=== PATIENT | female | born 1985 | race Caucasian/White ===

== ENCOUNTER → 2020-01-09 | Outpatient (CLI) | payer OTHER | LOC: SJCVCIMAG 09:41 | PROVIDERS: ATTEND Internal Medicine Cardiovascular Disease | DX: I08.1 Rheumatic disorders of both mitral and tricuspid valves (principal); R94.31 Abnormal electrocardiogram [ECG] [EKG] ==

== ENCOUNTER → 2020-04-16 | Outpatient (CLI) | payer OTHER | LOC: SJCVCIMAG 14:47 | PROVIDERS: ATTEND Internal Medicine Cardiovascular Disease | DX: I07.1 Rheumatic tricuspid insufficiency (principal); I10 Essential (primary) hypertension; Z79.899 Other long term (current) drug therapy; Z86.16 Personal history of COVID-19 ==

== ENCOUNTER 2020-05-08 11:33 | Inpatient (IN) | payer OTHER ==
[~2020-05-08] VITALS: Ht 180.3 cm; Wt 126.9 kg
[2020-05-08 11:34] VITALS: BP 136/77
[2020-05-08 12:45] LABS: HEMOGLOBIN 12.7 gm/dL (12.0-15.0); MONOCYTES 7.9 % (1.0-8.0)
[2020-05-08 12:52] LABS: ABSOLUTE NEUTROPHILS 8.9 thou/uL (1.4-8.2); BASOPHILS 0.5 % (0.0-2.0); HEMATOCRIT 37.6 % (37.0-47.0); LYMPHOCYTES 3.4 % (24.0-44.0); MCH 28.5 pg (26.0-34.0); MCHC 33.8 g/dL (28.0-37.0); MCV 84.3 fL (80.0-100.0); POLYS 88.2 % (36.0-66.0); RBC 4.46 mil/uL (4.20-5.00); RDW 14.1 % (10.5-14.5); WBC 10.1 thou/uL (4.0-11.0)
[2020-05-08 12:54] LABS: CREATININE 2.2 mg/dL (0.6-1.0); POTASSIUM 3.8 mmol/L (3.5-5.1)
[2020-05-08 13:00] LABS: ALBUMIN 3.3 g/dL (3.4-5.0); TOTAL BILIRUBIN 1.8 mg/dL (0.2-1.0); TOTAL PROTEIN 7.9 g/dL (6.4-8.2)
[2020-05-08 13:29] LABS: URINE BILIRUBIN 1+ (Negative); URINE BLOOD 3+ (Negative); URINE CLARITY CLEAR; URINE COLOR YELLOW; URINE GLUCOSE-RANDOM* NEGATIVE (Negative); URINE KETONES TRACE (Negative); URINE NITRITE-REFLEX NEGATIVE (Negative); URINE PROTEIN (DIPSTICK) 2+ (Negative)
--- NOTE | 2020-05-08 13:29 | EKG ---
[address] [place] [address] ELECTROCARDIOGRAM REPORT Name: KERRI SANCHEZ CHAO Room #: [facility] [id number] Admission: 05/08/20 Attend Phys: Discharge: Date of : 81 Report #: [id number] [facility] Test Date: 2020-05-08 Test Time: 12:59:21 Pat Name: KERRI SANCHEZ Department: Room: Gender: F Manager Produce: KATIE : 1985 Requested By: Zay Perez Order Number: [id number] MD: Baltazar Rose Measurements Intervals [place] Rate: 119 P: 69 VA: 127 QRS: 55 QRSD: 80 T: -29 QT: 339 QTc: 478 Interpretive Statements Sinus tachycardia Probable left atrial enlargement Borderline T wave abnormalities Borderline prolonged QT interval No previous ECG available for comparison Electronically Signed On 05-08-2020 13:29:21 CDT by Baltazar Rose [email or web address] <ELECTRONICALLY SIGNED> By: Baltazar Rose MD, [facility] 05/08/20 1329 [id number] Baltazar Rose MD, FACC /EPI
[2020-05-08 13:31] LABS: URINE LEUKOCYTES-REFLEX 3+ (Negative)
[2020-05-08 13:42] LABS: WBC CLUMPS Moderate (None Seen)
[2020-05-08 13:43] LABS: BACTERIA-REFLEX >30 Many /HPF (None Seen); SQUAMOUS 4-10 Moderate /LPF (0-3); URINE WBC-REFLEX >25 Many /HPF (0-5)
[2020-05-08 13:44] LABS: COARSE GRANULAR CASTS 0-3 Few /LPF (None Seen)
[2020-05-08 13:45] LABS: CRYSTALS None Seen /LPF (None Seen); URINE RBC 0-2 Rare /HPF (0-2)
[2020-05-08 14:11] LABS: PLATELET COUNT 160 thou/uL (150-400)
[2020-05-08 14:12] LABS: LARGE PLATELETS RARE
[2020-05-08 17:25] VITALS: BP 123/64
[2020-05-08 18:12] VITALS: BP 123/64
[2020-05-08] MEDS ORDERED: METOPROLOL SUC100 MG PO (20:11)
[2020-05-08] MEDS ORDERED: HUMALOG100 UNIT/1 SUBQ (20:12)
[2020-05-08] MEDS ORDERED: ESCITALOPRAM OX20 MG PO (20:12)
[2020-05-08] MEDS ORDERED: METFORMIN HCL500 M1 PO (20:13)
[2020-05-08] MEDS ORDERED: HYDROCHLOROTH12.5 M2 PO (20:14)
[2020-05-08] MEDS ORDERED: LANTUS SOL100 UNIT/1 SUBQ (20:15)
[2020-05-08] MEDS ORDERED: LOSARTAN POTASS50 MG PO (20:16)
[2020-05-08] MEDS ORDERED: PULMICORT FLE180 MCG INH (20:17)
[2020-05-08] MEDS ORDERED: ROSUVASTATIN CAL5 MG PO (20:19)
--- NOTE | 2020-05-08 20:38 | NUR ---
RECEIVED PT FROM ED. PT IS AXOX4, WITH MOTHER WHO IS CAREGIVER. PT IS LEGALLY BLIND. PT HAS LOW GRADE FEVER, SKIN CLAMMY, WITH SOME FLUSHING. PT IS ST ON MOLDING MACHINE OPERATOR HELPER. ADMISSION COMPLETED. MOTHER AT THE BEDSIDE. POC IS TO CONTINUE MED RECONCILLIATION, CONTINUE CARE PER ORDERS. FALL PRECAUTIONS IN PLACE. NO CONCERNS AT THIS TIME.
[2020-05-08 22:31] VITALS: BP 130/78
[2020-05-09 00:17] VITALS: BP 110/66
--- NOTE | 2020-05-09 04:38 | NUR ---
ASSESSMENT DOCUMENTED.PT BEEN RESTING IN BED IN NO ACUTE DISTRESS.A/OX4.LEGALLY BLIND .VSS.PT HAD LOW GRADE FEVER WITH CHILLS AT THE BEGINNING OF THE SHIFT,TYLENOL WAS GIVEN FOR PAIN/FEVER,PT HAS BEEN AFEBRILE AFTER THAT BUT OCCASIONALLY GETS SWEATY W/CHILLS.TOLERATING ORAL FLUIDS.VOIDING IN LARGE AMOUNT,MUTIPLE TIMES THIS SHIFT.MEDS RECONCILLED AND VERIFIED BY DR JAVED.PT DENIES ANY NEEDS AT THIS TIME.
[2020-05-09 04:42] VITALS: BP 151/92
[2020-05-09 05:33] LABS: HEMATOCRIT 35.4 % (37.0-47.0); HEMOGLOBIN 11.6 gm/dL (12.0-15.0); MCH 28.2 pg (26.0-34.0); MCHC 32.8 g/dL (28.0-37.0); RBC 4.11 mil/uL (4.20-5.00); RDW 14.2 % (10.5-14.5)
[2020-05-09 05:52] LABS: CALCIUM 8.4 mg/dL (8.5-10.1); POTASSIUM 4.3 mmol/L (3.5-5.1)
[2020-05-09 08:00] VITALS: BP 137/87
[2020-05-09 12:00] VITALS: BP 125/76
[2020-05-09 16:00] VITALS: BP 129/80
[2020-05-09 19:30] VITALS: BP 143/93
--- NOTE | 2020-05-09 19:56 | NUR ---
RECEIVED PT'S CARE AROUND 0720; PT. ON BED RESTING WITH EYES CLOSED; SLEEP INTERRUPTED AT SHIFT CHANGED; PT. ALERT; SR ON THE MONITOR; DURING AM ASSESSMENT PT. AOX4; NO C/O PAIN; EDUCATED ABOUT PAIN MANAGEMENT; ST. UNDERSTANDING; AM MEDICATIONS GIVEN; UP TO CHAIR THROUGH THE MORNING; BG ON THE 300s; PHYSICIAN NOTIFIED ORDERS RECEIVED; FROM LOW DOSE TO MODERATE AND HIGH DOSE; DURING THE AFTERNOON PT. C/O PAIN; PRN ACETAMINOPHEN GIVEN; REASSESSMENT PT. ST. DECREASE PAIN, BUT REMAINED ON PAIN; PHYSICIAN NOTIFIED; ORDERS RECEIVED; PRN PAIN MEDICATION GIVNE; REASSESSMENT PT. RESTING WITH EYES CLOSED; ASSESSMENT CHARGED; FOLLOWING POC; PASSED ON REPORT;
[2020-05-10 04:45] VITALS: BP 143/80; BP 149/82
[2020-05-10 04:49] LABS: CALCIUM 8.4 mg/dL (8.5-10.1); CREATININE 1.4 mg/dL (0.6-1.0)
[2020-05-10 05:03] LABS: POTASSIUM 3.1 mmol/L (3.5-5.1)
[2020-05-10 05:06] LABS: HEMATOCRIT 31.4 % (37.0-47.0); HEMOGLOBIN 10.5 gm/dL (12.0-15.0); MCH 28.2 pg (26.0-34.0); MCHC 33.5 g/dL (28.0-37.0); MCV 84.3 fL (80.0-100.0); RBC 3.73 mil/uL (4.20-5.00); RDW 14.3 % (10.5-14.5); WBC 5.4 thou/uL (4.0-11.0)
[2020-05-10 07:25] VITALS: BP 143/80
[2020-05-10] MEDS ORDERED: HYDROCODON-ACE1 EAC7 PO (08:53)
[2020-05-10] MEDS ORDERED: CEFDINIR300 MG PO (08:54)
[2020-05-10] MEDS ORDERED: K-DUR 20 MEQ T20 MEQ PO (08:54)
[2020-05-10 16:09] VITALS: BP 143/80
== END 2020-05-10 16:34 | disposition home or self-care (01) | DRG 871 ==
LOC: ER 11:33 → EROBS 15:08 → 2N 15:08
PROVIDERS: Physician Assistant; ADMIT Family Medicine; ATTEND Family Medicine
DX: A41.9 Sepsis, unspecified organism (principal); N17.0 Acute kidney failure with tubular necrosis; N12 Tubulo-interstitial nephritis, not specified as acute or chronic; J45.909 Unspecified asthma, uncomplicated; H54.8 Legal blindness, as defined in USA; E11.9 Type 2 diabetes mellitus without complications; Z86.16 Personal history of COVID-19; Z88.2 Allergy status to sulfonamides; Z91.018 Allergy to other foods
CPT/HCPCS: 10081